=== PATIENT | male | born 1960 | race Caucasian/White ===

== ENCOUNTER 2017-08-23 20:01 | Emergency (ER) | payer OTHER ==
[2017-08-23] MEDS: SODIUM CHLORIDE 0.9% 1L BAG IV* (20:46)
[2017-08-23] MEDS: CEFTRIAXONE 1 GM/50 ML (PMX) 50 ML IVPB (20:47)
[2017-08-23] MEDS: IBUPROFEN 600 MG TAB PO (20:47)
[2017-08-23 20:50] LABS: ADD MAN DIFF? NO
[2017-08-23 21:02] LABS: WHITE BLOOD COUNT 12.4 10^3/ul (4.8-10.8)
[2017-08-23 21:02] LABS: BASOPHILS % 0.3 % (0.0-2.0); EOSINOPHILS # 0.3 10^3/ul (0.0-0.5); EOSINOPHILS % 2.2 % (0.0-7.0); HEMATOCRIT 40.4 % (42.0-52.0); LYMPHOCYTES # 2.6 10^3/ul (0.8-2.9); LYMPHOCYTES % 21.3 % (15.0-51.0); MEAN CORPUSCULAR HEMOGLOBIN 31.3 pg (29.0-33.0); MEAN CORPUSCULAR HGB CONC 34.7 g/dl (32.0-37.0); MEAN CORPUSCULAR VOLUME 90.4 fl (82.0-101.0); MEAN PLATELET VOLUME 10.6 fl (7.4-10.4); MONOCYTE # 0.9 10^3/ul (0.3-0.9); MONOCYTES % 7.5 % (0.0-11.0); NEUTROPHIL # 8.5 10^3/ul (1.6-7.5); NEUTROPHILS % 68.5 % (39.0-77.0); PLATELET COUNT 178 10^3/UL (140-415); RED BLOOD COUNT 4.47 10^6/ul (4.70-6.10); RED CELL DISTRIBUTION WIDTH 13.1 % (11.5-14.5)
[2017-08-23 21:20] LABS: LACTIC ACID 1.8 mmol/L (0.5-2.0)
[2017-08-23 21:22] LABS: INR 1.02; PROTIME 13.5 Sec (11.9-14.9); PT RATIO 1.1
[2017-08-23 21:23] LABS: PARTIAL THROMBOPLASTIN TIME 30.5 Sec (25.0-35.0)
[2017-08-23 21:39] LABS: ALANINE AMINOTRANSFERASE 46 IU/L (13-69); ALBUMIN 4.1 g/dl (3.3-4.9); ALKALINE PHOSPHATASE 98 IU/L (42-121); ANION GAP 15 (8-16); ASPARTATE AMINO TRANSFERASE 29 IU/L (15-46); BILIRUBIN,INDIRECT 0.4 mg/dl (0-1.1); BILIRUBIN,TOTAL 0.4 mg/dl (0.2-1.3); BLOOD UREA NITROGEN 26 mg/dl (7-20); CALCIUM 8.5 mg/dl (8.4-10.2); CARBON DIOXIDE 28 mmol/L (21-31); CHLORIDE 104 mmol/L (97-110); CREATININE 0.87 mg/dl (0.61-1.24); GLUCOSE 140 mg/dl (70-220); LIPASE 99 U/L (23-300); POTASSIUM 3.7 mmol/L (3.5-5.1); SODIUM 143 mmol/L (135-144); TOTAL PROTEIN 7.5 g/dl (6.1-8.1)
[2017-08-23 21:52] LABS: ADD UMIC YES; UR ASCORBIC ACID NEGATIVE (NEGATIVE); UR BILIRUBIN (Dip) NEGATIVE (NEGATIVE); UR BLOOD (Dip) 1+ mg/dL (NEGATIVE); UR CLARITY CLEAR (CLEAR); UR COLOR YELLOW (YELLOW); UR GLUCOSE (Dip) NEGATIVE (NEGATIVE); UR KETONES (Dip) NEGATIVE (NEGATIVE); UR LEUKOCYTE ESTERASE (Dip) NEGATIVE Leu/ul (NEGATIVE); UR NITRITE (Dip) NEGATIVE (NEGATIVE); UR RBC 1 /HPF (0-5); UR SPECIFIC GRAVITY (Dip) 1.021 (1.003-1.030); UR TOTAL PROTEIN (Dip) NEGATIVE (NEGATIVE); UR UROBILINOGEN (Dip) NEGATIVE (NEGATIVE); UR WBC 2 /HPF (0-5)
[2017-08-23 22:07] LABS: TROPONIN-I < 0.012 ng/ml (0.00-0.12)
== END 2017-08-23 23:00 | disposition home or self-care (01) ==
LOC: E/R 20:01
DX: L02.411 Cutaneous abscess of right axilla (principal); D17.21 Benign lipomatous neoplasm of skin and subcutaneous tissue of right arm; I10 Essential (primary) hypertension; E66.9 Obesity, unspecified; R07.9 Chest pain, unspecified; R50.9 Fever, unspecified
CPT/HCPCS: 36415; 71045; 76536; 80053; 81001; 83605; 83690; 84484; 85025; 85610; 85730; 87040; 87086; 93005; 96374; 99285-25

== ENCOUNTER 2017-12-23 12:00 | Emergency (ER) | payer OTHER | END 2017-12-23 13:42 | disposition home or self-care (01) | LOC: FTE 12:00 | DX: H11.32 Conjunctival hemorrhage, left eye (principal); I10 Essential (primary) hypertension | CPT/HCPCS: 99283; Z7502 ==

== ENCOUNTER 2018-07-17 17:56 | Emergency (ER) | payer OTHER ==
[2018-07-17] MEDS: HYDROCODONE/APAP (5/325) TAB PO (23:51)
== END 2018-07-18 00:26 | disposition home or self-care (01) ==
LOC: FTE 07-18 00:26
DX: B02.9 Zoster without complications (principal); I10 Essential (primary) hypertension
CPT/HCPCS: 99283; Z7502

== ENCOUNTER 2018-12-04 17:48 | Emergency (ER) | payer OTHER ==
[2018-12-04] MEDS: ONDANSETRON 4 MG INJ IV (18:33)
[2018-12-04] MEDS: SOD CHLORIDE 0.9% 1,000 ML IV (18:34)
[2018-12-04] MEDS: HYDROmorphONE 1 MG/ML SYG IV (18:34)
[2018-12-04 18:38] LABS: ADD MAN DIFF? NO
[2018-12-04 18:39] LABS: BASOPHILS % 0.3 % (0.0-2.0); EOSINOPHILS % 0.2 % (0.0-7.0); HEMATOCRIT 41.8 % (42.0-52.0); LYMPHOCYTES # 1.8 10^3/ul (0.8-2.9); LYMPHOCYTES % 18.3 % (15.0-51.0); MEAN CORPUSCULAR HEMOGLOBIN 30.9 pg (29.0-33.0); MEAN CORPUSCULAR HGB CONC 33.5 g/dl (32.0-37.0); MEAN CORPUSCULAR VOLUME 92.3 fl (82.0-101.0); MEAN PLATELET VOLUME 9.7 fl (7.4-10.4); MONOCYTE # 0.9 10^3/ul (0.3-0.9); MONOCYTES % 8.9 % (0.0-11.0); NEUTROPHIL # 7.2 10^3/ul (1.6-7.5); NEUTROPHILS % 71.9 % (39.0-77.0); PLATELET COUNT 229 10^3/UL (140-415); RED BLOOD COUNT 4.53 10^6/ul (4.70-6.10); RED CELL DISTRIBUTION WIDTH 12.7 % (11.5-14.5)
[2018-12-04 18:58] LABS: ADD UMIC YES; UR ASCORBIC ACID NEGATIVE (NEGATIVE); UR BACTERIA FEW /HPF (NONE SEEN); UR BILIRUBIN (Dip) NEGATIVE (NEGATIVE); UR BLOOD (Dip) 2+ mg/dL (NEGATIVE); UR CLARITY CLOUDY (CLEAR); UR COLOR YELLOW (YELLOW); UR GLUCOSE (Dip) NEGATIVE (NEGATIVE); UR KETONES (Dip) NEGATIVE (NEGATIVE); UR LEUKOCYTE ESTERASE (Dip) NEGATIVE Leu/ul (NEGATIVE); UR MUCUS MODERATE /HPF (NONE SEEN); UR NITRITE (Dip) NEGATIVE (NEGATIVE); UR RBC > 182 /HPF (0-5); UR SPECIFIC GRAVITY (Dip) 1.024 (1.003-1.030); UR TOTAL PROTEIN (Dip) NEGATIVE (NEGATIVE); UR UROBILINOGEN (Dip) NEGATIVE (NEGATIVE); UR WBC 4 /HPF (0-5)
[2018-12-04 19:03] LABS: ALANINE AMINOTRANSFERASE 41 IU/L (13-69); ALBUMIN 4.1 g/dl (3.3-4.9); ALBUMIN/GLOBULIN RATIO 1.24; ALKALINE PHOSPHATASE 87 IU/L (42-121); ANION GAP 9 (5-13); ASPARTATE AMINO TRANSFERASE 32 IU/L (15-46); BILIRUBIN,INDIRECT 0.6 mg/dl (0-1.1); BILIRUBIN,TOTAL 0.6 mg/dl (0.2-1.3); BLOOD UREA NITROGEN 20 mg/dl (7-20); CALCIUM 9.2 mg/dl (8.4-10.2); CARBON DIOXIDE 30 mmol/L (21-31); CHLORIDE 102 mmol/L (97-110); CREATININE 1.23 mg/dl (0.61-1.24); Estimated GFR > 60 mL/min (>60); GLUCOSE 108 mg/dl (70-220); LIPASE 65 U/L (23-300); POTASSIUM 3.6 mmol/L (3.5-5.1); SODIUM 141 mmol/L (135-144); TOTAL PROTEIN 7.4 g/dl (6.1-8.1)
== END 2018-12-04 20:08 | disposition home or self-care (01) ==
LOC: E/R 17:48
DX: N20.1 Calculus of ureter (principal); I10 Essential (primary) hypertension
CPT/HCPCS: 36415; 74176; 80053; 81001; 83690; 85025; 96374; 96375; 99285-25

== ENCOUNTER 2018-12-08 16:57 | Inpatient (IN) | payer OTHER ==
[2018-12-08 20:19] LABS: ADD MAN DIFF? NO
[2018-12-08 20:23] LABS: BASOPHILS % 0.3 % (0.0-2.0); EOSINOPHILS # 0.1 10^3/ul (0.0-0.5); EOSINOPHILS % 1.3 % (0.0-7.0); HEMOGLOBIN 14.5 g/dl (14.0-18.0); LYMPHOCYTES # 1.7 10^3/ul (0.8-2.9); LYMPHOCYTES % 16.1 % (15.0-51.0); MEAN CORPUSCULAR HEMOGLOBIN 30.9 pg (29.0-33.0); MEAN CORPUSCULAR HGB CONC 33.7 g/dl (32.0-37.0); MEAN CORPUSCULAR VOLUME 91.5 fl (82.0-101.0); MEAN PLATELET VOLUME 10.1 fl (7.4-10.4); MONOCYTE # 0.8 10^3/ul (0.3-0.9); MONOCYTES % 7.9 % (0.0-11.0); NEUTROPHIL # 7.6 10^3/ul (1.6-7.5); PLATELET COUNT 232 10^3/UL (140-415); RED CELL DISTRIBUTION WIDTH 12.5 % (11.5-14.5)
[2018-12-08 20:23] LABS: WHITE BLOOD COUNT 10.3 10^3/ul (4.8-10.8)
[2018-12-08 20:46] LABS: ALANINE AMINOTRANSFERASE 38 IU/L (13-69); ALBUMIN 4.1 g/dl (3.3-4.9); ALKALINE PHOSPHATASE 91 IU/L (42-121); ANION GAP 11 (5-13); ASPARTATE AMINO TRANSFERASE 28 IU/L (15-46); BILIRUBIN,INDIRECT 0.7 mg/dl (0-1.1); BILIRUBIN,TOTAL 0.7 mg/dl (0.2-1.3); BLOOD UREA NITROGEN 20 mg/dl (7-20); CALCIUM 9.1 mg/dl (8.4-10.2); CARBON DIOXIDE 27 mmol/L (21-31); CHLORIDE 100 mmol/L (97-110); CREATININE 1.34 mg/dl (0.61-1.24); Estimated GFR 55 mL/min (>60); GLUCOSE 115 mg/dl (70-220); LIPASE 55 U/L (23-300); POTASSIUM 4.1 mmol/L (3.5-5.1); SODIUM 138 mmol/L (135-144); TOTAL PROTEIN 8.2 g/dl (6.1-8.1)
[2018-12-08] MEDS: ONDANSETRON 4 MG INJ IV ×2 (21:05→22:18)
[2018-12-08] MEDS: SOD CHLORIDE 0.9% 1,000 ML IV (21:05)
[2018-12-08] MEDS: morphine 4 MG/ML VIAL IV ×2 (21:05→22:18)
[2018-12-08] MEDS ORDERED: ACETAMINOPHEN 325 MG TAB PO (23:30)
[2018-12-08] MEDS ORDERED: ONDANSETRON 4 MG INJ IV (23:30)
[2018-12-09] MEDS ORDERED: ONDANSETRON 4 MG INJ IV (01:30)
[2018-12-09] MEDS ORDERED: HYDROCODONE/APAP (5/325) TAB PO ×2 (01:30)
[2018-12-09] MEDS ORDERED: NACL 0.9% 3 ML SYG IV (01:30)
[2018-12-09] MEDS ORDERED: ALBUTEROL/IPRATROPIUM (NEB) 3 ML AMP HHN (01:30)
[2018-12-09] MEDS ORDERED: ACETAMINOPHEN 325 MG TAB PO (01:30)
[2018-12-09] MEDS ORDERED: morphine 4 MG/ML VIAL IV (01:30)
[2018-12-09] MEDS: TAMSULOSIN (SR) 0.4 MG CAP PO (02:33)
[2018-12-09] MEDS: CEFTRIAXONE 1 GM/50 ML (PMX) 50 ML IVPB (02:34)
[2018-12-09] MEDS: SOD CHLORIDE 0.9% 1,000 ML IV ×3 (02:35→16:11)
[2018-12-09 05:58] LABS: ADD MAN DIFF? NO
[2018-12-09 06:20] LABS: BASOPHILS % 0.3 % (0.0-2.0); EOSINOPHILS # 0.2 10^3/ul (0.0-0.5); EOSINOPHILS % 2.6 % (0.0-7.0); HEMATOCRIT 39.8 % (42.0-52.0); HEMOGLOBIN 13.3 g/dl (14.0-18.0); LYMPHOCYTES # 1.7 10^3/ul (0.8-2.9); LYMPHOCYTES % 20.3 % (15.0-51.0); MEAN CORPUSCULAR HEMOGLOBIN 30.4 pg (29.0-33.0); MEAN CORPUSCULAR HGB CONC 33.4 g/dl (32.0-37.0); MEAN CORPUSCULAR VOLUME 91.1 fl (82.0-101.0); MEAN PLATELET VOLUME 10.6 fl (7.4-10.4); MONOCYTES % 11.3 % (0.0-11.0); NEUTROPHIL # 5.6 10^3/ul (1.6-7.5); POSITIVE DIFF @See below; RED BLOOD COUNT 4.37 10^6/ul (4.70-6.10); RED CELL DISTRIBUTION WIDTH 12.6 % (11.5-14.5)
[2018-12-09 06:20] LABS: WHITE BLOOD COUNT 8.6 10^3/ul (4.8-10.8)
[2018-12-09 06:46] LABS: ALANINE AMINOTRANSFERASE 27 IU/L (13-69); ALBUMIN 3.4 g/dl (3.3-4.9); ALBUMIN/GLOBULIN RATIO 0.97; ALKALINE PHOSPHATASE 75 IU/L (42-121); ANION GAP 4 (5-13); ASPARTATE AMINO TRANSFERASE 25 IU/L (15-46); BILIRUBIN,INDIRECT 0.8 mg/dl (0-1.1); BILIRUBIN,TOTAL 0.8 mg/dl (0.2-1.3); BLOOD UREA NITROGEN 18 mg/dl (7-20); CALCIUM 8.3 mg/dl (8.4-10.2); CARBON DIOXIDE 30 mmol/L (21-31); CHLORIDE 101 mmol/L (97-110); CREATININE 1.15 mg/dl (0.61-1.24); Estimated GFR > 60 mL/min (>60); GLUCOSE 117 mg/dl (70-220); MAGNESIUM 2.3 mg/dl (1.7-2.5); PHOSPHORUS 3.1 mg/dl (2.5-4.9); POTASSIUM 3.8 mmol/L (3.5-5.1); SODIUM 135 mmol/L (135-144); TOTAL PROTEIN 6.9 g/dl (6.1-8.1)
[2018-12-09 07:36] LABS: ANISOCYTOSIS 3+ (0-0); BAND NEUTROPHILS #M 0.2 10^3/ul (0.0-0.6); BAND NEUTROPHILS % (M) 3 % (0-4); BASOPHILS % (M) 1 % (0-2); EOSINOPHILS % (M) 4 % (0-7); LYMPHOCYTES #M 1.3 10^3/ul (0.8-2.9); LYMPHOCYTES % (M) 16 % (15-51); MONOCYTE #M 0.6 10^3/ul (0.3-0.9); MONOCYTES % (M) 7 % (0-11); PLATELET ESTIMATE NORMAL; POLYCHROMASIA 3+ (0-0); SEGMENTED NEUTROPHILS (M) % 69 % (39-77); SMUDGE%M 3 % (0-0)
[2018-12-09 12:26] LABS: PLATELET COUNT 159 10^3/UL (140-415)
[2018-12-09] MEDS: LOSARTAN 25 MG TAB PO (12:43)
[2018-12-09 14:33] LABS: ADD UMIC YES; UR ASCORBIC ACID NEGATIVE (NEGATIVE); UR BILIRUBIN (Dip) NEGATIVE (NEGATIVE); UR BLOOD (Dip) 2+ mg/dL (NEGATIVE); UR CLARITY CLEAR (CLEAR); UR COLOR STRAW (YELLOW); UR GLUCOSE (Dip) NEGATIVE (NEGATIVE); UR KETONES (Dip) NEGATIVE (NEGATIVE); UR LEUKOCYTE ESTERASE (Dip) NEGATIVE Leu/ul (NEGATIVE); UR NITRITE (Dip) NEGATIVE (NEGATIVE); UR RBC 2 /HPF (0-5); UR SPECIFIC GRAVITY (Dip) 1.006 (1.003-1.030); UR TOTAL PROTEIN (Dip) NEGATIVE (NEGATIVE); UR UROBILINOGEN (Dip) NEGATIVE (NEGATIVE); UR WBC 1 /HPF (0-5)
[2018-12-09] MEDS: POTASSIUM CHLORIDE 10 MEQ in SOD CHLORIDE 0.45% 1,000 ML IV ×2 (14:39→23:30)
[2018-12-10] MEDS: CEFTRIAXONE 1 GM/50 ML (PMX) 50 ML IVPB (01:27)
[2018-12-10 05:37] LABS: ADD MAN DIFF? NO
[2018-12-10 05:46] LABS: BASOPHILS % 0.4 % (0.0-2.0); EOSINOPHILS # 0.6 10^3/ul (0.0-0.5); EOSINOPHILS % 8.6 % (0.0-7.0); HEMATOCRIT 42.6 % (42.0-52.0); LYMPHOCYTES # 2.1 10^3/ul (0.8-2.9); LYMPHOCYTES % 31.9 % (15.0-51.0); MEAN CORPUSCULAR HEMOGLOBIN 30.2 pg (29.0-33.0); MEAN CORPUSCULAR HGB CONC 32.9 g/dl (32.0-37.0); MEAN PLATELET VOLUME 10.2 fl (7.4-10.4); MONOCYTE # 0.7 10^3/ul (0.3-0.9); MONOCYTES % 10.6 % (0.0-11.0); NEUTROPHIL # 3.2 10^3/ul (1.6-7.5); NEUTROPHILS % 48.1 % (39.0-77.0); PLATELET COUNT 183 10^3/UL (140-415); RED BLOOD COUNT 4.63 10^6/ul (4.70-6.10); RED CELL DISTRIBUTION WIDTH 12.9 % (11.5-14.5)
[2018-12-10 05:46] LABS: WHITE BLOOD COUNT 6.7 10^3/ul (4.8-10.8)
[2018-12-10] MEDS: POTASSIUM CHLORIDE 10 MEQ in SOD CHLORIDE 0.45% 1,000 ML IV ×2 (06:06→09:13)
[2018-12-10 06:16] LABS: ANION GAP 6 (5-13); BLOOD UREA NITROGEN 16 mg/dl (7-20); CALCIUM 8.6 mg/dl (8.4-10.2); CARBON DIOXIDE 29 mmol/L (21-31); CHLORIDE 104 mmol/L (97-110); CREATININE 1.14 mg/dl (0.61-1.24); Estimated GFR > 60 mL/min (>60); GLUCOSE 103 mg/dl (70-220); MAGNESIUM 2.2 mg/dl (1.7-2.5); PHOSPHORUS 3.8 mg/dl (2.5-4.9); POTASSIUM 4.1 mmol/L (3.5-5.1); SODIUM 139 mmol/L (135-144)
[2018-12-10] MEDS: LOSARTAN 25 MG TAB PO (09:13)
== END 2018-12-10 16:50 | disposition home or self-care (01) | DRG 694 ==
LOC: 2NE 23:22 → E/R 16:57
DX: N13.2 Hydronephrosis with renal and ureteral calculous obstruction (principal); I10 Essential (primary) hypertension; N28.9 Disorder of kidney and ureter, unspecified; N40.0 Benign prostatic hyperplasia without lower urinary tract symptoms
CPT/HCPCS: 74018; 74176; 80048; 80053; 81001; 82355; 83690; 83735; 84100; 85025; 87086; 96374; 96375; 96376; 99285-25